=== PATIENT | male | born 1960 | race Hispanic/Latino ===

== ENCOUNTER 2018-06-24 12:11 | Emergency (ER) | payer OTHER ==
[~2018-06-24] VITALS: Ht 167.6 cm; Wt 86.2 kg
[~2018-06-24 12:11] MED LIST: FLEXERIL10 MG PO; NORCO 325 MG-51 TAB PO; VISTARIL50 M1 PO; ZOFRAN4 M2 PO
[2018-06-24 13:05] LABS: ABSOLUTE BASOPHIL COUNT 0 /CUMM (0.0-0.2); ABSOLUTE EOSINOPHIL COUNT 0.1 /CUMM (0.0-0.7); ABSOLUTE GRANULOCYTE CT 4.4 /CUMM (1.4-6.5); ABSOLUTE LYMPH COUNT 1.5 /CUMM (1.2-3.4); ABSOLUTE MONOCYTE COUNT 0.5 /CUMM (0.10-0.60); BASOPHIL % 0.6 % (0.0-2.0); EOSINOPHIL % 1.9 % (0-5); GRANULOCYTE % 66.6 % (42.2-75.2); HEMATOCRIT 37.9 % (42-52); MEAN CORPUSCULAR HGB CONC 34.3 G/DL (33.0-37.0); MEAN CORPUSCULAR VOLUME 104.9 FL (80.0-94.0); MEAN PLATELET VOLUME 8.7 FL (7.4-10.4); PLATELET COUNT 257 /CUMM (130-400); RBC DISTRIBUTION WIDTH 13.8 % (11.5-14.5); RED BLOOD CELL CT 3.62 /CUMM (4.70-6.10); WHITE BLOOD CELL COUNT 6.7 /CUMM (4.8-10.8)
--- NOTE | 2018-06-24 13:45 | RADIOLOGY REPORT ---
EXAMINATION: XR CHEST CLINICAL INFORMATION: Chest pain. Transient. COMPARISON: Chest radiograph 09/25/2017. TECHNIQUE: 2 views of the chest were obtained. FINDINGS: Lungs are well-expanded. No focal consolidative disease, pleural effusion, or pneumothorax. The cardiac silhouette and upper mediastinal contours are normal. No acute osseous finding. Exuberant callus related to an old healed left lower rib fracture is partially included within the [id number] of this examination. IMPRESSION: No acute finding. Specifically no consolidative disease or effusion.
--- NOTE | 2018-06-24 17:32 | ED GENERAL ADULT ---
History of Present Illness General Chief Complaint: Chest Pain Stated Complaint: CHEST PAIN Source: patient Exam Limitations: no limitations Vital Signs & Intake/Output Vital Signs & Intake/Output Vital Signs Date Time Temp Pulse Resp B/P B/P Pulse O2 O2 Flow FiO2 Mean Ox Delivery Rate 06/24 1915 99.3 65 18 136/82 95 Room Air 06/24 1616 97.5 65 65 127/70 100 06/24 1237 Room Air 06/24 1219 98.4 80 20 123/77 97 Room Air ED Intake and Output 06/25 0000 06/24 1200 Intake Total Output Total Balance Patient 190 lb Weight Weight Estimated Measurement Method Allergies Coded Allergies: No Known Allergies (06/24/18) Reconcile Medications Prednisone 50 MG TABLET 1 TAB PO DAILY CHEST PAIN Triage Note: PT TO ED C/O CHEST PAIN SINCE LAST NIGHT. STATES PAIN IS WORSE WITH DEEP BREATH. PAIN DOES NOT RADIATE. DENIES N/V. Triage Nurses Notes Reviewed? yes HPI: 57 yo M with a pmhx sig for kidney disease, diverticulosis presents to the ED with chest pain x 2 days, worse with twisting and turning and deep breaths. Not worse with exertion. No sweats or nausea. Denies radiation to neck, back or arm. Persistent over last 2 days. Spoke with PMD who asked that he be brought here. Past History Travel History Traveled to [place] past 21 day No Medical History Any Pertinent Medical History? see below for history Neurological: NONE EENT: NONE Cardiovascular: hypertension Respiratory: NONE Gastrointestinal: NONE Hepatic: NONE Renal: NONE Musculoskeletal: NONE Psychiatric: NONE Endocrine: NONE Blood Disorders: NONE Cancer(s): NONE ELECTRONIC DESIGN ENGINEER/Reproductive: NONE Surgical History Surgical History: non-contributory Psychosocial History What is your primary language Kuwaiti Tobacco Use: Quit >30 days ago ETOH Use: occasional use Illicit Drug Use: denies illicit drug use Family History Hx Contributory? Yes (father with CAD <65 yo) Review of Systems Review of Systems Constitutional: Denies: chills, diaphoresis, fever. Respiratory: Reports: see HPI, short of breath. Denies: cough, hemoptysis, stridor, wheezing. Cardiovascular: Reports: chest pain, edema (BL, on lasix). GI: Denies: nausea, vomiting. Musculoskeletal: Denies: no symptoms. All Other Systems: Reviewed and Negative Physical Exam Physical Exam General Appearance: well developed/nourished, no apparent distress, alert, awake Eyes: Bilateral: normal appearance. Ears, Nose, Throat: normal ENT inspection Respiratory: normal breath sounds, chest non-tender, no respiratory distress, lungs clear Cardiovascular: regular rate/rhythm Gastrointestinal: soft, non-tender Neurologic/Psych: no motor/sensory deficits, awake, alert Core Measures ACS in differential dx? Yes (HEART score of 3 (low risk)) CVA/TIA Diagnosis: No Sepsis Present: No Sepsis Focused Exam Completed? No Progress Differential Diagnoses I considered the following diagnoses in my evaluation of the patient: acs, pe, dissection, pna, msk, gerd, pericarditis, myocarditis Plan of Care: Orders Procedure Date/time Status Add-on Test (ER Only) 06/24 1747 Active C-REACTIVE PROTEIN 06/24 1534 Complete TROPONIN LEVEL 06/24 1457 Complete EKG 06/24 1457 Active WESTERGREN SED RATE 06/24 1230 Complete TROPONIN LEVEL 06/24 1222 Complete D-DIMER 06/24 1222 Complete COMPREHENSIVE METABOLIC PANEL 06/24 1222 Complete CBC WITHOUT DIFFERENTIAL 06/24 1222 Complete EKG 06/24 1212 Active Laboratory Tests 06/24/18 1534: Troponin I < 0.01, C-Reactive Prot, Quant 0.9 06/24/18 1230: Anion Gap 10, Estimated GFR 48 L, BUN/Creatinine Ratio 20.7, Glucose 105 H, Calcium 9.6, Total Bilirubin 0.3, AST 29, ALT 33, Alkaline Phosphatase 64, Troponin I < 0.01, Total Protein 7.7, Albumin 4.6, Globulin 3.1, Albumin/ Globulin Ratio 1.5, D-Dimer High Sensitivty < 200, CBC w Diff NO MAN DIFF REQ, RBC 3.62 L, MCV 104.9 H, MCH 36.0 H, MCHC 34.3, RDW 13.8, MPV 8.7, Gran % 66.6, Lymphocytes % 23.1, Monocytes % 7.8, Eosinophils % 1.9, Basophils % 0.6, Absolute Granulocytes 4.4, Absolute Lymphocytes 1.5, Absolute Monocytes 0.5, Absolute Eosinophils 0.1, Absolute Basophils 0, ESR Westergren 28 H Initial ED EKG: normal intervals, normal p-waves, normal QRS complex, NSR, rhythm, rate, no ST T wave changes Repeat EKG: unchanged Comments: HEART score of 3. Dimer negative. Spoke with PMD who states Cr is improved. Will see patient this week. CXR negative. Story much more in linme with pericarditis or MSK as opposed to ACS. Small amnount of fluid seen around heart on bedside US. Spoke wtih Dr. Mancilla about possible small amount of fluid around the heart. Given chest pain and sob, will treat with steroids. Dr. Mancilla agrees with plan and will see patient as OP. Strict return precautions given for changes in sx including worsening chest pain , sob, fevers, chills or if he has any other concerns. All questions were answered, extensive patient counseling was administered on risks and benefits of OP follow up and they agree. Departure Departure Disposition: HOME OR SELF CARE Condition: Stable Clinical Impression Primary Impression: Chest pain Referrals: Rupali SMART,Sue (PCP/Family) Departure Forms: Customer Survey General Discharge Information Prescriptions: Current Visit Scripts Prednisone 1 TAB PO DAILY #7 TAB Critical Care Note Critical Care Note Critical Care Time: non-applicable ED Attending Observation Initial Observation Note: I have seen and personally examined HAIR BEY on 06/25/18 at 0107. I agree with the current emergency department documentation. The disposition (admission or discharge) is uncertain at this time, he needs a period of observation for the following reason(s): The ED Nurse caring for this patient has been personally informed as to what the patient is being observed for.
[2018-06-24] MEDS ORDERED: PREDNISONE50 M1 PO (19:13)
[2018-06-24 19:15] VITALS: BP 136/82
== END 2018-06-24 19:30 ==
LOC: ERH 12:11
PROVIDERS: Physician Assistant Medical
DX: R07.9 Chest pain, unspecified (principal); I10 Essential (primary) hypertension; Z87.891 Personal history of nicotine dependence
CPT/HCPCS: 71046; 93005; 93010; J7512